=== PATIENT | female | born 1990 | race American Indian/Alaskan Native ===

== ENCOUNTER 2020-12-18 10:09 | Emergency (ER) | payer MEDICAID ==
[2020-12-18 10:20] VITALS: BP 114/72
[2020-12-18] MEDS ORDERED: ACETAMINOPHEN 325 MG TAB ONE (10:25)
--- NOTE | 2020-12-18 10:25 | Emergency Department Report ---
ED General Adult HPI - General Chief complaint: Dental/Oral Stated complaint: DENTAL PAIN Time Seen by Provider: 12/18/20 10:19 Source: patient Mode of arrival: Ambulatory Limitations: No Limitations - History of Present Illness Initial comments: 30-year-old -Cam[place] female patient presents with complaints of left lower dental pain starting yesterday. She denies any facial swelling, dysphagia, difficulty opening her jaw, or fever/chills/sweats. Patient rates her pain as a 9/10 in severity. She does report history of a dental abscess in the area. She states she plans to call her dental specialist today. -: Sudden - Related Data Previous Rx's Medication Instructions Recorded Last Taken Type Acetaminophen/Codeine [Tylenol 1 tab PO Q8H PRN #10 tab 12/18/20 Unknown Rx /Codeine # 3 tab] Clindamycin [Clindamycin CAP] 300 mg PO Q6H 7 Days #28 capsule 12/18/20 Unknown Rx Ibuprofen [Motrin 800 MG tab] 800 mg PO Q8HR PRN #20 tablet 12/18/20 Unknown Rx Allergies Allergy/AdvReac Type Severity Reaction Status Date / Time Penicillins AdvReac Anaphylaxis Verified 12/18/20 10:20 ED Review of Systems ROS: Stated complaint: DENTAL PAIN Other details as noted in HPI ENT: dental pain. denies: throat pain Respiratory: denies: cough, shortness of breath Cardiovascular: denies: chest pain Skin: denies: change in color Neurological: denies: headache ED Past Medical Hx - Past Medical History Previous Medical History?: No - Surgical History Past Surgical History?: No - Social History Smoking Status: Never Smoker Substance Use Type: None - Medications Home Medications: Home Medications Medication Instructions Recorded Confirmed Last Taken Type Acetaminophen/Codeine [Tylenol 1 tab PO Q8H PRN #10 tab 12/18/20 Unknown Rx /Codeine # 3 tab] Clindamycin [Clindamycin CAP] 300 mg PO Q6H 7 Days #28 capsule 12/18/20 Unknown Rx Ibuprofen [Motrin 800 MG tab] 800 mg PO Q8HR PRN #20 tablet 12/18/20 Unknown Rx ED Physical Exam - General Limitations: No Limitations General appearance: alert, in no apparent distress - Head Head exam: Present: atraumatic, normocephalic - Eye Eye exam: Present: normal appearance - Expanded ENT Exam Expanded Mouth exam: Absent: drooling, trismus, muffled voice Teeth exam: Present: dental caries 1 - Dental Tenderness (No dental abscess or overlying facial swelling) - Neck Neck exam: Present: full ROM. Absent: lymphadenopathy - Respiratory Respiratory exam: Absent: respiratory distress - Cardiovascular Cardiovascular Exam: Present: regular rate - Neurological Exam Neurological exam: Present: alert, oriented X3, normal gait - Psychiatric Psychiatric exam: Present: normal affect, normal mood - Skin Skin exam: Present: warm, dry, intact, normal color. Absent: rash ED Course Vital Signs 12/18/20 10:18 Temperature 98.3 F Pulse Rate 61 Respiratory 12 Rate Blood Pressure 114/72 O2 Sat by Pulse 100 Oximetry ED Medical Decision Making - Medical Decision Making 30-year-old -[place] female patient presents with complaints of left lower dental pain starting yesterday. She denies any facial swelling, dysphagia, difficulty opening her jaw, or fever/chills/sweats. Patient rates her pain as a 9/10 in severity. She does report history of a dental abscess in the area. She states she plans to call her dental specialist today. We will treat for dental infection with clindamycin given patient's penicillin allergy. Patient to follow-up with a dental specialist within 48 hours. Her vitals are within normal limits, she is nontoxic-appearing, and she is stable for discharge home. Discussed signs symptoms that should prompt immediate return to the emergency department in detail with patient who verbalizes understanding. Critical care attestation.: If time is entered above; I have spent that time in minutes in the direct care of this critically ill patient, excluding procedure time. ED Disposition Clinical Impression: Pain, dental Disposition: DC-01 TO HOME OR SELFCARE Is pt being admited?: No Condition: Stable Instructions: Dental Abscess Additional Instructions: Please follow-up with your dental specialist or a dental specialist from the list provided within 48 hours Prescriptions: Clindamycin [Clindamycin CAP] 300 mg PO Q6H 7 Days #28 capsule Ibuprofen [Motrin 800 MG tab] 800 mg PO Q8HR PRN #20 tablet PRN Reason: pain Acetaminophen/Codeine [Tylenol /Codeine # 3 tab] 1 tab PO Q8H PRN #10 tab PRN Reason: Pain , Severe (7-10) Referrals: PRIMARY CARE,MD [Primary Care Provider] - 3-5 Days Forms: Work/School Release Form(ED)
[2020-12-18] MEDS ORDERED: IBUPROFEN 800 MG TAB PO STA (10:29)
[2020-12-18] MEDS ORDERED: ACETAMINOPHEN 325 MG TAB PO STA (10:30)
[2020-12-18] MEDS ORDERED: IBUPROFEN 800 MG TAB PO ONE (11:00)
[2020-12-18] MEDS ORDERED: ACETAMINOPHEN 325 MG TAB PO ONE (11:00)
== END 2020-12-18 10:53 | disposition home or self-care (01) ==
LOC: ED 10:09
DX: K08.89 Other specified disorders of teeth and supporting structures (principal); Z79.899 Other long term (current) drug therapy
CPT/HCPCS: 99282

== ENCOUNTER 2021-05-12 13:17 | Emergency (ER) | payer OTHER, MEDICAID ==
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
[2021-05-12] MEDS ORDERED: BUTALB/ACETAMINOPHEN/CAFFEINE TAB PO STA (14:28)
[2021-05-12] MEDS ORDERED: IBUPROFEN 800 MG TAB PO STA (14:28)
[2021-05-12 14:52] VITALS: BP 118/87
== END 2021-05-12 15:04 | disposition home or self-care (01) ==
LOC: ED 13:17
DX: G44.209 Tension-type headache, unspecified, not intractable (principal); M54.6 Pain in thoracic spine; Z72.89 Other problems related to lifestyle; Z88.0 Allergy status to penicillin; Z79.899 Other long term (current) drug therapy; V89.2XXA Person injured in unspecified motor-vehicle accident, traffic, initial encounter; Y93.89 Activity, other specified; Y92.488 Other paved roadways as the place of occurrence of the external cause; Y99.8 Other external cause status
CPT/HCPCS: 99282

== ENCOUNTER 2021-05-16 07:32 | Emergency (ER) | payer OTHER, MEDICAID ==
[2021-05-16 07:47] VITALS: BP 101/49
[2021-05-16] MEDS ORDERED: KETOROLAC 10 MG TAB PO ONE (07:53)
[2021-05-16] MEDS ORDERED: HYDROcodone/ACETAMINOPHEN 5-325 MG TAB PO ONE (07:53)
[2021-05-16] MEDS ORDERED: diphenhydrAMINE 50 MG/ML VIAL IV ONE (08:10)
[2021-05-16] MEDS ORDERED: SODIUM CHLORIDE 0.9% 1000 ML 1,000 ML IV ONE (08:10)
[2021-05-16] MEDS ORDERED: METOCLOPRAMIDE 10 MG/2 ML INJ IV ONE (08:10)
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
== END 2021-05-16 10:02 | disposition home or self-care (01) ==
LOC: ED 07:32
DX: S16.1XXA Strain of muscle, fascia and tendon at neck level, initial encounter (principal); G44.209 Tension-type headache, unspecified, not intractable; M62.838 Other muscle spasm; Z98.890 Other specified postprocedural states; Z72.89 Other problems related to lifestyle; Z79.899 Other long term (current) drug therapy; Z88.0 Allergy status to penicillin; V89.2XXA Person injured in unspecified motor-vehicle accident, traffic, initial encounter; Y93.89 Activity, other specified; Y92.488 Other paved roadways as the place of occurrence of the external cause; Y99.8 Other external cause status
CPT/HCPCS: 70450; 72125; 96361; 96374; 96375; 99283; J1200; J2765; J7030; 70460